=== PATIENT | female | born 1945 | race African-American/Black ===

== ENCOUNTER 2016-05-27 08:50 | Outpatient (RCR) | payer OTHER | END 2016-06-09 | disposition home or self-care (01) | LOC: PTY 08:50 | DX: S39.012A Strain of muscle, fascia and tendon of lower back, initial encounter (principal); X58.XXXA Exposure to other specified factors, initial encounter; Y92.9 Unspecified place or not applicable; Y99.8 Other external cause status | CPT/HCPCS: 97110; G0283 ==

== ENCOUNTER 2016-11-16 10:00 | Outpatient (RCR) | payer OTHER | END 2016-12-07 | disposition home or self-care (01) | LOC: PTY 10:00 | DX: M54.9 Dorsalgia, unspecified (principal) | CPT/HCPCS: 97110; 97161; G0283 ==